=== PATIENT | female | born 1965 | race Caucasian/White ===

== ENCOUNTER 2016-12-14 05:14 | Inpatient (IN) | payer OTHER ==
[2016-12-08 08:39] VITALS: BP 131/95
[~2016-12-14] VITALS: Ht 152.4 cm; Wt 62.0 kg
[~2016-12-14 05:14] MED LIST: ALEN70TA5 PO; CALCIUM + D PO; CYCL-259 PO; ESCI20TA PO; HYDR-3138 PO; ZOLP-413 PO
[2016-12-14] MEDS ORDERED: LACTATED RINGERS 1,000 ML IV SCH (05:53)
[2016-12-14] MEDS ORDERED: LIDOCAINE 1%, 2ML SQ PRN (06:00)
[2016-12-14] MEDS ORDERED: ONDANSETRON 2MG/ML, 2ML IVPush PRN (07:00)
[2016-12-14] MEDS ORDERED: FENTANYL PF 100 MCG/2ML IV PRN (07:00)
[2016-12-14] MEDS ORDERED: METOCLOPRAMIDE 5 MG/ML, 2ML IV PRN (07:00)
[2016-12-14] MEDS ORDERED: hydrALAzine 20 MG/ML, 1ML IV PRN (07:00)
[2016-12-14] MEDS ORDERED: LABETALOL 5MG/ML, 20ML IV PRN ×3 (07:00→13:00)
[2016-12-14] MEDS ORDERED: MEPERIDINE/PF 25MG/0.5ML IVPush PRN (07:00)
[2016-12-14] MEDS ORDERED: OXYcodone 5 MG/5 ML ORAL.SOL UDC PO PRN (07:00)
[2016-12-14] MEDS ORDERED: ACETAMINOPHEN 325 MG TABLET PO PRN (07:00)
[2016-12-14] MEDS ORDERED: PROMETHAZINE 25 MG/ML, 1ML IV PRN (07:00)
[2016-12-14] MEDS ORDERED: HYDROmorphone 1 MG/ML, 1ML IV PRN (07:00)
[2016-12-14] MEDS ORDERED: PROPOFOL 10 MG/ML, 50ML ONE (07:08)
[2016-12-14] MEDS ORDERED: LABETALOL 5MG/ML 40ML VIAL ONE (07:08)
[2016-12-14] MEDS ORDERED: CEFAZOLIN 1,000 MG ONE (07:08)
[2016-12-14] MEDS ORDERED: ROCURONIUM 10 MG/ML ONE ×2 (07:08→14:30)
[2016-12-14] MEDS ORDERED: SUCCINYLCHOLINE 20 MG/ML, 10ML ONE (07:08)
[2016-12-14] MEDS ORDERED: PHENYLEPHRINE 10 MG/ML ONE (07:08)
[2016-12-14] MEDS ORDERED: PROPOFOL 10 MG/ML, 20ML ONE (07:08)
[2016-12-14] MEDS ORDERED: NEOSTIGMINE 1 MG/ML, 10ML ONE (07:08)
[2016-12-14] MEDS ORDERED: GLYCOPYRROLATE 0.2MG/1ML ONE (07:08)
[2016-12-14] MEDS ORDERED: OXYcodone 5 MG/5 ML ORAL.SOL UDC ONE (09:10)
[2016-12-14] MEDS ORDERED: HYDROmorphone 2 MG/ML, 1ML ONE (09:10)
[2016-12-14] MEDS ORDERED: ACETAMINOPHEN 650 MG/20.3 ML UDC ONE (09:10)
[2016-12-14] MEDS ORDERED: DIPHENHYDRAMINE 50 MG CAPSULE PO ONE (11:00)
[2016-12-14] MEDS ORDERED: OXYcodone/APAP 5/325MG TABLET PO PRN (12:00)
[2016-12-14] MEDS ORDERED: PROMETHAZINE 25 MG/ML, 1ML IM PRN (12:00)
[2016-12-14] MEDS ORDERED: ONDANSETRON 2MG/ML, 2ML IV PRN (12:00)
[2016-12-14] MEDS ORDERED: DIPHENHYDRAMINE 50 MG CAPSULE PO PRN (12:00)
[2016-12-14] MEDS ORDERED: METHOCARBAMOL 1,000 MG in DEXTROSE 5% 100 ML IV ONE (12:00)
[2016-12-14] MEDS ORDERED: METHOCARBAMOL 750 MG in DEXTROSE 5% 100 ML IV SCH (12:00)
[2016-12-14] MEDS ORDERED: BISACODYL 10 MG SUPP PR PRN (12:00)
[2016-12-14] MEDS ORDERED: MAGNESIUM HYDROXIDE 8%, 30ML UDC PO PRN (12:00)
[2016-12-14] MEDS ORDERED: morphine SULFATE 10 MG/ML, 1ML IV PRN (12:00)
[2016-12-14] MEDS: D5%-0.9% NACL+KCL 20MEQ 1,000 ML IV SCH (13:03)
[2016-12-14] MEDS: METHOCARBAMOL 750 MG TABLET PO SCH ×2 (13:04→20:00)
[2016-12-14 14:00] VITALS: BP 153/50
[2016-12-14] MEDS: CEFAZOLIN PMX 1GM/50ML 50 ML IVPB SCH ×2 (15:15→23:23)
[2016-12-14] MEDS ORDERED: SODIUM CHLORIDE 0.9%, 500ML IVBOLUS ONE (17:00)
[2016-12-14] MEDS: HYDROcodone/APAP 10/325 MG TABLET PO PRN ×3 (17:02→21:39)
[2016-12-14 20:06] VITALS: BP 94/52
[2016-12-14] MEDS: METHOCARBAMOL 750 MG in DEXTROSE 5% 100 ML IV SCH (20:51)
[2016-12-14] MEDS ORDERED: ZOLPIDEM 5MG TABLET PO PRN (21:00)
[2016-12-15 00:03] VITALS: BP 99/61
[2016-12-15] MEDS: D5%-0.9% NACL+KCL 20MEQ 1,000 ML IV SCH ×3 (02:22→18:00)
[2016-12-15 02:35] VITALS: BP 92/60
[2016-12-15] MEDS: METHOCARBAMOL 750 MG TABLET PO SCH ×3 (04:00→20:00)
[2016-12-15] MEDS: METHOCARBAMOL 750 MG in DEXTROSE 5% 100 ML IV SCH ×3 (05:37→21:23)
[2016-12-15] MEDS: HYDROcodone/APAP 10/325 MG TABLET PO PRN ×4 (05:47→21:23)
[2016-12-15] MEDS: ENOXAPARIN 40 MG/0.4 ML SQ SCH (05:48)
[2016-12-15] MEDS ORDERED: ENOXAPARIN 40 MG/0.4 ML SQ SCH (06:00)
[2016-12-15 07:59] VITALS: BP 101/68
[2016-12-15] MEDS: SENNA/DOCUSATE TABLET PO SCH (08:16)
[2016-12-15] MEDS: CITALOPRAM 20 MG TABLET PO SCH (08:16)
[2016-12-15 13:25] VITALS: BP 98/66
[2016-12-15 19:09] VITALS: BP 114/77
[2016-12-16 00:20] VITALS: BP 96/62
[2016-12-16 03:40] VITALS: BP 103/56
[2016-12-16] MEDS: METHOCARBAMOL 750 MG TABLET PO SCH ×3 (04:00→19:35)
[2016-12-16] MEDS: D5%-0.9% NACL+KCL 20MEQ 1,000 ML IV SCH ×2 (04:00→12:50)
[2016-12-16] MEDS: HYDROcodone/APAP 10/325 MG TABLET PO PRN ×4 (04:06→20:18)
[2016-12-16] MEDS: METHOCARBAMOL 750 MG in DEXTROSE 5% 100 ML IV SCH ×3 (05:27→20:18)
[2016-12-16] MEDS: ENOXAPARIN 40 MG/0.4 ML SQ SCH (05:36)
[2016-12-16 07:15] VITALS: BP 105/70
[2016-12-16] MEDS: SENNA/DOCUSATE TABLET PO SCH (08:58)
[2016-12-16] MEDS: CITALOPRAM 20 MG TABLET PO SCH (08:58)
[2016-12-16] MEDS: ACYCLOVIR 200 MG CAPSULE PO SCH ×3 (11:26→20:18)
[2016-12-16 14:15] VITALS: BP 99/66
[2016-12-16 19:45] VITALS: BP 100/63
[2016-12-17] MEDS: HYDROcodone/APAP 10/325 MG TABLET PO PRN ×3 (01:35→22:18)
[2016-12-17 01:49] VITALS: BP 106/60
[2016-12-17] MEDS: METHOCARBAMOL 750 MG TABLET PO SCH ×3 (04:00→21:06)
[2016-12-17] MEDS: METHOCARBAMOL 750 MG in DEXTROSE 5% 100 ML IV SCH (05:27)
[2016-12-17] MEDS: ENOXAPARIN 40 MG/0.4 ML SQ SCH (05:29)
[2016-12-17] MEDS ORDERED: EPINEPHRINE 1 MG/ML, 1ML ONE (06:36)
[2016-12-17] MEDS ORDERED: BUPIVACAINE/PF 0.25% ONE ×2 (06:37)
[2016-12-17] MEDS: ACYCLOVIR 200 MG CAPSULE PO SCH ×4 (06:40→21:06)
[2016-12-17] MEDS ORDERED: THROMBIN 5,000 UNIT VIAL TP ONE (06:45)
[2016-12-17 07:05] VITALS: BP 101/55
[2016-12-17] MEDS ORDERED: BACITRACIN 50,000 UNIT ONE (07:49)
[2016-12-17] MEDS: SENNA/DOCUSATE TABLET PO SCH (09:56)
[2016-12-17] MEDS: CITALOPRAM 20 MG TABLET PO SCH (09:56)
[2016-12-17] MEDS ORDERED: MIDAZOLAM 1 MG/ML, 2ML ONE (12:42)
[2016-12-17] MEDS ORDERED: HYDROmorphone 1 MG/ML, 1ML IV PRN ×2 (14:00→17:00)
[2016-12-17] MEDS ORDERED: LABETALOL 5MG/ML, 20ML IV PRN ×2 (14:00→19:00)
[2016-12-17] MEDS ORDERED: FENTANYL PF 100 MCG/2ML IV PRN ×2 (14:00→17:00)
[2016-12-17] MEDS ORDERED: MEPERIDINE/PF 25MG/0.5ML IVPush PRN ×2 (14:00→17:00)
[2016-12-17] MEDS ORDERED: ONDANSETRON 2MG/ML, 2ML IVPush PRN ×2 (14:00→17:00)
[2016-12-17] MEDS ORDERED: OXYcodone 5 MG/5 ML ORAL.SOL UDC PO PRN ×2 (14:00→17:00)
[2016-12-17] MEDS ORDERED: PROMETHAZINE 25 MG/ML, 1ML IV PRN ×2 (14:00→17:00)
[2016-12-17] MEDS ORDERED: ACETAMINOPHEN 325 MG TABLET PO PRN ×2 (14:00→17:00)
[2016-12-17] MEDS ORDERED: DEXAMETHASONE 4 MG/ML, 1ML ONE (14:16)
[2016-12-17] MEDS ORDERED: ONDANSETRON 2MG/ML, 2ML ONE (14:16)
[2016-12-17] MEDS ORDERED: PROPOFOL 10 MG/ML, 20ML ONE (14:17)
[2016-12-17] MEDS ORDERED: FENTANYL PF 100 MCG/2ML ONE (15:45)
[2016-12-17] MEDS: D5%-0.9% NACL+KCL 20MEQ 1,000 ML IV SCH ×2 (16:00)
[2016-12-17] MEDS ORDERED: OXYcodone 5 MG/5 ML ORAL.SOL UDC ONE (17:29)
[2016-12-17 18:32] VITALS: BP 117/72
[2016-12-17] MEDS ORDERED: DIPHENHYDRAMINE 50 MG CAPSULE PO PRN (19:00)
[2016-12-17] MEDS ORDERED: ONDANSETRON 2MG/ML, 2ML IV PRN (19:00)
[2016-12-17] MEDS ORDERED: D5%-0.9% NACL+KCL 20MEQ 1,000 ML IV SCH (19:00)
[2016-12-17] MEDS ORDERED: DIAZEPAM 5 MG/ML, 2ML IV PRN (19:00)
[2016-12-17] MEDS ORDERED: HYDROcodone/APAP 10/325 MG TABLET PO PRN (19:00)
[2016-12-17] MEDS ORDERED: morphine SULFATE 10 MG/ML, 1ML IV PRN (19:00)
[2016-12-17] MEDS ORDERED: DIAZEPAM 5 MG TABLET PO PRN (19:00)
[2016-12-17] MEDS ORDERED: PROMETHAZINE 25 MG/ML, 1ML IM PRN (19:00)
[2016-12-17] MEDS ORDERED: METHOCARBAMOL 750 MG TABLET PO PRN (19:00)
[2016-12-17] MEDS ORDERED: BISACODYL 10 MG SUPP PR PRN (19:00)
[2016-12-17] MEDS ORDERED: MAGNESIUM HYDROXIDE 8%, 30ML UDC PO PRN (19:00)
[2016-12-17] MEDS ORDERED: ZOLPIDEM 5MG TABLET PO PRN (21:00)
[2016-12-17] MEDS ORDERED: OXYcodone/APAP 5/325MG TABLET PO PRN (21:30)
[2016-12-18 00:31] VITALS: BP 125/70
[2016-12-18] MEDS: CEFAZOLIN PMX 1GM/50ML 50 ML IVPB SCH ×2 (00:41→08:58)
[2016-12-18] MEDS: D5%-0.9% NACL+KCL 20MEQ 1,000 ML IV SCH ×3 (02:00→20:10)
[2016-12-18] MEDS: HYDROcodone/APAP 10/325 MG TABLET PO PRN ×6 (02:17→22:31)
[2016-12-18] MEDS: METHOCARBAMOL 750 MG TABLET PO SCH ×3 (04:36→20:10)
[2016-12-18 04:49] VITALS: BP 112/71
[2016-12-18] MEDS: ACYCLOVIR 200 MG CAPSULE PO SCH (05:22)
[2016-12-18] MEDS: CITALOPRAM 20 MG TABLET PO SCH (08:58)
[2016-12-18] MEDS: DOXYCYCLINE 100MG TABLET PO SCH ×2 (08:58→20:09)
[2016-12-18] MEDS ORDERED: SENNA/DOCUSATE TABLET PO SCH (09:00)
[2016-12-18] MEDS: SENNA/DOCUSATE TABLET PO SCH (09:01)
[2016-12-18 09:25] VITALS: BP 104/72
[2016-12-18 15:02] VITALS: BP 126/82
[2016-12-18 20:34] VITALS: BP 101/67
[2016-12-19 01:58] VITALS: BP 95/60
[2016-12-19] MEDS: HYDROcodone/APAP 10/325 MG TABLET PO PRN ×3 (02:34→10:44)
[2016-12-19] MEDS: METHOCARBAMOL 750 MG TABLET PO SCH ×2 (05:54→13:45)
[2016-12-19] MEDS: D5%-0.9% NACL+KCL 20MEQ 1,000 ML IV SCH (05:56)
[2016-12-19 06:26] VITALS: BP 98/66
[2016-12-19] MEDS ORDERED: ALENDRONATE 70 MG TABLET PO SCH (06:30)
[2016-12-19] MEDS: CITALOPRAM 20 MG TABLET PO SCH (07:53)
[2016-12-19] MEDS: DOXYCYCLINE 100MG TABLET PO SCH (07:54)
[2016-12-19] MEDS: SENNA/DOCUSATE TABLET PO SCH (07:54)
[2016-12-19] MEDS ORDERED: HYDR-3144 PO (11:14)
[2016-12-19] MEDS ORDERED: METH750T87 PO (11:15)
[2016-12-19] MEDS ORDERED: DOXY50CA42 PO (11:21)
[2016-12-19 14:00] VITALS: BP 110/79
== END 2016-12-19 14:10 | disposition home or self-care (01) | DRG 460 ==
LOC: ORIP 05:14 → EDSTATUS 07:00 → 4NOR 10:35
PROVIDERS: ADMIT Neurological Surgery; ATTEND Neurological Surgery
PROC: 0SB40ZZ Excision of Lumbosacral Disc, Open Approach (ICD-10-PCS; 2016-12-14)
PROC: 4A11X4G Monitoring of Peripheral Nervous Electrical Activity, Intraoperative, External Approach (ICD-10-PCS; 2016-12-14)
PROC: 0SG30A0 Fusion of Lumbosacral Joint with Interbody Fusion Device, Anterior Approach, Anterior Column, Open Approach (ICD-10-PCS; principal; 2016-12-14 07:00)
DX: M51.17 Intervertebral disc disorders with radiculopathy, lumbosacral region (principal); M43.17 Spondylolisthesis, lumbosacral region; M19.90 Unspecified osteoarthritis, unspecified site; M48.07 Spinal stenosis, lumbosacral region; B00.1 Herpesviral vesicular dermatitis; G89.29 Other chronic pain; Z90.710 Acquired absence of both cervix and uterus; Z83.3 Family history of diabetes mellitus; Z82.49 Family history of ischemic heart disease and other diseases of the circulatory system; Z80.9 Family history of malignant neoplasm, unspecified; Z79.899 Other long term (current) drug therapy
CPT/HCPCS: 36415; 72100; 72131; 74000; 86850; 86900; J0171; J0690; J1100; J1170; J1650; J2250; J2405; J2704; J2710; J3010; J3490; J0330; J2370; J2800; J3480; J7040; J7120

== ENCOUNTER → 2017-02-16 | Outpatient (CLI) | payer OTHER ==
[~2017-02-16] MED LIST changes: +DOXY50CA42 PO; -HYDR-3138 PO; +HYDR-3237 PO; +HYDR-3245 PO; +METH750T87 PO
== END | disposition home or self-care (01) ==
LOC: RAD 10:45
PROVIDERS: ATTEND Neurological Surgery
DX: M43.17 Spondylolisthesis, lumbosacral region (principal); M43.27 Fusion of spine, lumbosacral region
CPT/HCPCS: 72110